=== PATIENT | male | born 1965 | race Caucasian/White ===

== ENCOUNTER 2021-03-17 14:06 | Emergency (ER) | payer SELFPAY ==
[~2021-03-17] VITALS: Ht 177.8 cm; Wt 75.0 kg
[2021-03-17] MEDS ORDERED: ACETAMINOPHEN 500 MG TABLET PO ONE (14:30)
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
[2021-03-17] MEDS ORDERED: PLEASE ENTER ALLERGIES MC SCH (15:00)
--- NOTE | 2021-03-17 15:00 | NUR ---
REPORT GIVEN TO BREAK RN MERARY AT BEDSIDE. PT SLEEPING, RESPS EVEN AND UNLABORED, NADN. C SPINE PRECAUTIONS IN PLACE.
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
[2021-03-17 18:37] VITALS: BP 111/78
== END 2021-03-17 18:39 | disposition home or self-care (01) ==
LOC: EDBD 14:06 → ED 18:19
DX: S02.2XXA Fracture of nasal bones, initial encounter for closed fracture (principal); S02.40CA Maxillary fracture, right side, initial encounter for closed fracture; S16.1XXA Strain of muscle, fascia and tendon at neck level, initial encounter; S20.212A Contusion of left front wall of thorax, initial encounter; S09.90XA Unspecified injury of head, initial encounter; Y04.8XXA Assault by other bodily force, initial encounter; Y93.89 Activity, other specified; Y92.89 Other specified places as the place of occurrence of the external cause; Y99.8 Other external cause status
CPT/HCPCS: 70450; 70486; 72125; 99285